=== PATIENT | male | born 1965 | race Caucasian/White ===

== ENCOUNTER 2024-08-13 16:50 | Emergency (ER) | payer OTHER, SELFPAY ==
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
[2024-08-13 16:53] VITALS: BP 142/79; PULSE 78; RESP 18; TEMP 36.6; O2SAT 98; BMI 27.4
[2024-08-13] MEDS: Cyclobenzaprine HCl 10 MG TABLET PO (18:26)
[2024-08-13 20:40] VITALS: BP 139/79; PULSE 69; RESP 18; TEMP 36.8; O2SAT 94
[2024-08-13 20:45] VITALS: BP 139/79; PULSE 69; RESP 18; TEMP 36.8; O2SAT 94
== END 2024-08-13 20:46 | disposition home or self-care (01) ==
PROVIDERS: Emergency Provider Emergency Medicine Emergency Medical Services
DX: S49.91XA Unspecified injury of right shoulder and upper arm, initial encounter (principal); R51.9 Headache, unspecified; M54.2 Cervicalgia; M25.511 Pain in right shoulder; V43.52XA Car driver injured in collision with other type car in traffic accident, initial encounter; Y93.89 Activity, other specified; Y92.488 Other paved roadways as the place of occurrence of the external cause; Y99.8 Other external cause status; Z79.899 Other long term (current) drug therapy
CPT/HCPCS: 70450; 72125; 73030; 99283; 99284